=== PATIENT | female | born 1950 | race Caucasian/White ===

== ENCOUNTER 2016-08-25 12:05 | Emergency (ER) | payer OTHER ==
[~2016-08-25] VITALS: Ht 162.6 cm; Wt 56.4 kg
[2016-08-25 12:04] VITALS: BP 130/60; PULSE 47; RESP 15; O2SAT 100
--- NOTE | 2016-08-25 12:09 | ED.REPORT ---
HPI-Dizziness / Weakness Date of Service Aug 25, 2016 ED Provider: Wilmar Bingham MD 65 year old female presents to the ER via EMS due to dizziness onset shortly after her aerobics class just prior to arrival. Patient reports that she has been suffering from "clogged ears" for 4 weeks. This morning she had an unstable gait and felt off-balance. She went to her aerobics class and performed without difficulty, but shortly after the class ended she became dizzy , nauseated, diaphoretic, and overwhelmingly fatigued, and drove directly to urgent care where she was referred to the ER. Patient denies shortness of breath , pain, vomiting, and any significant underlying chronic medical conditions. Nursing Notes Stated Complaint: DIZZY Chief Complaint: General Complaint Nursing Notes Reviewed: Yes Allergies: Coded Allergies: No Known Allergies (Unverified , 08/25/16) General Time Seen by MD: 12:08 Chief Complaint Dizzy Hx Obtained From: Patient Arrived By: Ambulance Onset Occurred: Just prior to arrival Symptom Duration: Since onset Location: : No pain Associated with: Reports: Balance problem, Fatigue, Nausea Similar Sx Previous: No Past Medical History Past Medical History Glaucoma Denies: COPD, Cancer, Congestive heart failure, Diabetes mellitus, Hypertension , Stroke Denies: Atrial fibrillation, Kidney disease, Renal failure, Renal insufficiency , Thyroid disease Smoking History Unknown if Ever Smoker Ambulatory Status Independent Review of Systems Constitutional: Reports: Fatigue Respiratory: Denies: Non-productive cough, Shortness of breath Cardiovascular: Denies: Chest pain GI: Reports: Nausea, Denies: Vomiting Skin: Reports Diaphoresis Neurologic: Reports: Dizziness, Lightheaded, Problem walking (Off-balance), Denies: Syncope Complete sys rev & neg: except as marked. Physical Exam Initial Vital Signs Vital Signs (First) Date Time Temp Pulse Resp B/P Pulse Ox O2 Delivery O2 Flow Rate FiO2 08/25/16 12:04 37.2 47 15 130/60 100 Room Air Initial VS: Reviewed Neck: Supple, Non-tender, Full range of motion Extremities: Vascular intact, Neuro intact, No swelling, No tenderness Skin: Warm, Dry, No cyanosis Psychiatric: Mood/affect normal, Behavior normal, Normal thought content General/Constitutional: Awake, Alert, Well developed, Well nourished Head / Eyes: Atraumatic, Normocephalic Respiratory / Chest: Breath sounds NL, Breath sounds = bilat, No respiratory distress, No rales, No rhonchi, No wheezing Cardiovascular: Heart rate NL, Regular rhythm, Heart sounds NL, No murmurs, Cap refill not delayed, Peripheral circulation NL Neurologic: Oriented X3, Speech NL, No motor deficits, No sensory deficits ENT: Airway patent, Mucous membranes moist, Pharynx NL Left TM normal. Right ear occluded by cerumen. Interpretation & Diagnostics Lab Results Interpretation Result Diagram: 08/25/16 1300 08/25/16 1300 Test 08/25/16 12:30 08/25/16 13:00 Hold Purple Top Tube Received (Received) Hold Blue Top Tube Received (Received) Hold Red Top Tube Received (Received) Hold [place] Top Tube Received (Received) White Blood Count 5.1th/mm3 (3.8-10.1) Red Blood Count 4.27mil/mm3 (3.90-5.20) Hemoglobin 13.0g/dL (12.0-15.6) Hematocrit 39.0% (35.0-46.0) Mean Corpuscular Volume 91.3fL (81-100) Mean Corpuscular Hemoglobin 30.4pg (27.0-35.0) Mean Corpuscular Hemoglobin Concent 33.3% (32.0-37.0) Red Cell Distribution Width 12.4% (12.3-15.4) Platelet Count 310bil/L (150-400) Neutrophils (%) (Auto) 58.3% (40-74) Lymphocytes (%) (Auto) 31.3% (14-46) Monocytes (%) (Auto) 8.6% (4-12) Eosinophils (%) (Auto) 0.8% (0-5) Basophils (%) (Auto) 0.8% (0-3) Sodium Level 138mEq/L (134-144) Potassium Level 4.0mEq/L (3.5-5.2) Chloride Level 100mEq/L (97-108) Carbon Dioxide Level 21mmol/L (18-29) Blood Urea Nitrogen 15mg/dL (8-27) Creatinine 0.64mg/dL (0.57-1.00) Estimat Glomerular Filtration Rate 134mL/min (>59) Glucose Level 121mg/dL (60-99) Calcium Level 9.1mg/dL (8.5-10.1) Magnesium Level 2.0mg/dL (1.6-2.6) Total Bilirubin 0.9mg/dL (0.0-1.2) Aspartate Amino Transf (AST/SGOT) 19U/L (0-50) Alanine Aminotransferase (ALT/SGPT) 13U/L (0-32) Alkaline Phosphatase 75U/L (25-165) Troponin T < 0.010ug/L (0.0-0.011) Total Protein 6.9g/dL (6.4-8.4) Albumin 4.6g/dL (3.4-5.0) Re-Eval/Medical Decision Med Decision/Clinical Course After talking to her in great detail and examining her, I believe that the most likely explanation for her symptoms is a relative bradycardia. She does have a heart rate initially in the mid to high 40s is a sinus rhythm. She takes timolol drops which certainly could bring about some degree of bradycardia. I wonder about the possibility of a sick sinus syndrome causing more pronounced bradycardia at other times. Her symptoms seem consistent with such a thing and EKG and blood testing does not reveal an more likely diagnosis. I recommended outpatient follow-up for further evaluation. Source of Hx: Old records Re-Evaluation/Progress #1: Time of Eval: 14:07 Re-Evaluation/Progress Note: Discussed physical examination findings and need for blood tests. Re-Evaluation/Progress #2: Re-Evaluation/Progress Note: Discussed lab results and plan to discharge. Patient is amenable to the plan. Return precautions given. All other questions addressed. Counseled Regarding: Diagnosis, Lab results, Need for follow-up, When/why to return to ED Patient Discharge & Departure Impression: Primary Impression: Fatigue Fatigue type: unspecified Qualified Code: R53.83 - Other fatigue Disposition: Home Discharge Condition All VS Reviewed: Yes Condition: Stable Additional Instructions: I do not believe that there is any dangerous cause for your symptoms at this time. EKG and blood testing are entirely normal. I think that your symptoms may be because of a low heart rate. Call your primary care provider to arrange a follow-up appointment in 1-2 days. Return to the ER if you develop new or worsening symptoms, chest pain, shortness of breath, or any other concerning symptoms. Try using some over the counter ear wax removal drops to see if that clears the wax from your ears. Scribe Attestation Portions of this note were transcribed by Lashell Capps. I, Dr. Bingham, personally performed the history, physical exam and medical decision-making; I reviewed and confirmed the accuracy of the information in the transcribed note. Signed by: Karen Castelan, 08/25/2016 and 14:47 Wilmar Bingham MD Aug 25, 2016 12:09 LASHELL CAPPS Aug 25, 2016 13:11
[2016-08-25 14:18] LABS: BASOPHILS % (AUTO) 0.8 % (0-3); EOSINOPHILS % (AUTO) 0.8 % (0-5); MONOCYTES % (AUTO) 8.6 % (4-12); Mean Corpuscular Hemoglobin 30.4 pg (27.0-35.0); Mean Corpuscular Volume 91.3 fL (81-100); NEUTROPHILS % (AUTO) 58.3 % (40-74); Platelet Count 310 bil/L (150-400)
[2016-08-25 14:31] LABS: TROPONIN T < 0.010 ug/L (0.0-0.011)
[2016-08-25 15:02] VITALS: BP 115/63; PULSE 53; RESP 14; RESP 20; O2SAT 98
== END 2016-08-25 15:03 | disposition home or self-care (01) ==
LOC: EDBD 12:05 → SED 12:05
DX: R53.83 Other fatigue (principal); R61 Generalized hyperhidrosis; R11.0 Nausea; H40.9 Unspecified glaucoma